=== PATIENT | male | born 1945 | race Caucasian/White ===

== ENCOUNTER → 2018-04-19 | Day surgery (SDC) | payer MEDICARE, OTHER ==
[~2018-04-19] MED LIST: Lactated Ringers 1,000 ML IV SCH; Propofol 200 MG/20 ML SDV IV ONE
[2018-04-19 08:37] VITALS: BP 128/63
--- NOTE | 2018-04-19 12:52 | OR ---
DATE OF OPERATION: 04/19/2018 PREOPERATIVE DIAGNOSIS: 1. UNEXPLAINED WEIGHT LOSS. 2. LACK OF APPETITE. 3. DIARRHEA. 4. MILD DIVERTICULOSIS ON FINDINGS. POSTOPERATIVE DIAGNOSIS: 1. UNEXPLAINED WEIGHT LOSS. 2. LACK OF APPETITE. 3. DIARRHEA. 4. MILD DIVERTICULOSIS ON FINDINGS. SURGEON: Cj Lee MD PROCEDURE: 1. ESOPHAGOGASTRODUODENOSCOPY WITH BIOPSY X2, ETHAN. 2. FULL-LENGTH COLONOSCOPY WITH RANDOM BIOPSIES X6. ANESTHESIA: RAW SILK GRADER due to chronic GERD. COMPLICATIONS: None. SPECIMEN: 1. Antral biopsy x2. 2. ETHAN. 3. Random colon biopsies x6. FINDINGS: 1. Full-length EGD. 2. Chronic antral gastritis with focal erosion. 3. Normal full-length colonoscopy. 4. Mild diverticulosis on findings. RECOMMENDATIONS: Medical followup with Dr. Pastor. INDICATIONS: The patient has been having some problems with diarrhea and hematochezia at times, and he has apparently had some weight loss with poor appetite. Dr. Pastor sent him for upper and lower endoscopy. DESCRIPTION OF PROCEDURE: The patient was prepped and draped, placed in the left lateral decubitus position. A lubricated Olympus gastroscope was inserted over a bit and advanced to cricopharyngeus area and easily intubated into the esophagus. Esophageal lining was benign in its entire course. The Z-line was crisp and sharp at 40 cm. There was no spontaneous GERD, no distal esophagitis, stricturing, ulceration, or Lezama's changes. The scope was advanced into the stomach through the pylorus into the second portion of the duodenum. This and the duodenal bulb were benign. The scope was brought back into the stomach and retroflexed. The upper fundus and cardia were unremarkable. Upon straightening, thorough evaluation of the rest of the gastric lining showed no gross abnormalities. No other gross abnormalities in the fundus. The antrum had changes of chronic gastritis without any obvious active ulcerations. There was one small area of what looked like a healed erosion. Two biopsies of the senior sales representative area were taken along with a ETHAN test. Air was then suctioned from the stomach. The scope was removed without complication. A lubricated Olympus colonoscope was then inserted and safely and easily advanced into the cecum. Direct visualization of the ileocecal valve and appendiceal orifice was accomplished. The bowel prep was excellent. We were able to easily intubate into the terminal ileum. No abnormalities were seen. Biopsy was taken. Throughout the entire length of the colon, I could find no signs of any polyps, masses, ulcerations, or bleeding sites. There were no vascular abnormalities or signs of colitis. Scattered diverticula, but very minimal without an inflammatory change. Random biopsies were taken from the terminal ileum all the way to the rectum. Numbering 6 in total. Retroflexion of the scope in the rectum showed no perianal lesions. Air was suctioned. The scope was removed without complication. NEAL/GERALD /[id number]
== END ==
LOC: CC.SDS 05:55
PROVIDERS: ATTEND Family Medicine
DX: K29.50 Unspecified chronic gastritis without bleeding (principal); K92.1 Melena; K57.30 Diverticulosis of large intestine without perforation or abscess without bleeding; K21.9 Gastro-esophageal reflux disease without esophagitis; E11.9 Type 2 diabetes mellitus without complications; Z79.82 Long term (current) use of aspirin; Z79.84 Long term (current) use of oral hypoglycemic drugs; Z79.899 Other long term (current) drug therapy; Z88.0 Allergy status to penicillin
CPT/HCPCS: 82962; 87081; J2704; J7120